=== PATIENT | female | born 1960 | race Caucasian/White ===

== ENCOUNTER 2017-07-24 18:30 | Outpatient (RCR) | payer MEDICAID, SELFPAY ==
--- NOTE | 2017-05-22 12:30 | HP.PTEVAL_ITS ---
Patient's Visit Information PRABHU OMER is a 56 year old F referred to Physical Therapy by Socorro Morales with a diagnosis of BACK AND NECK PAIN. Date of Evaluation: 05/22/17 Physical Therapist: Charlie Mittal, PT, - Visit Plan Frequency: 2x /Week Duration: 4 Weeks Plan: Aquatic PT for lumbar ROM ,DLS,POSTURE, ,FLEXABLITY,CERVICAL ROM,UE/LE STRENGTHENING - Subjective Subjective: This 56 y/o female presents to physical therapy with neck and back pain. Patient has spine for about 9 years. Patient has been seen pain managent [address] Morales. Patient has had personal issues has influenced back pain.Pain symmtrical cervical and thoracic pain,and lumbar.C/O parathesia fingers.Patient has had x-rays. Symptoms worse with walking,stress,standing, steps,lifting,cold,bending. Patient pain affects sleeping. Bowel/bladder -. Coughing/seezing -. Denies tinnitus/nausea/. Patien gas BELL. Pain affects quality of life and housework tasks. SOCAIL: single. VOCATION: unemployed - Pain Bilateral Back Pain Intensity (Out of 10): 3 Pain Intensity Range: 10 Bilateral Neck Pain Intensity (Out of 10): 3 Pain Intensity Range: 10 - Objective POSTURE: mild foward ,reduce lordosis. PALAPATION: render UT/[id number] -,erctor spinals. NEURO: c/o parathesia fingers,reflexes C5-6-7 2/3,L3-4,L4-5, L5-S1 1/3. SYMMTRIES: align. GAIT: normal kylah reciprocal pattern. AROM: BUE WFL,. CERVICAL:flexion min,lateral flexion ,rotation mod ,extension mod loss pain. LUMBAR ROM: flexion min ,side glides mod ,extension mod/severe loss. FLEXABLITY: hams mod tight. DIMINISHED HEEL/TOE WALKING - Special Tests C/S Radiculapathy - Left Upper limb tension test: Negative C/S Radiculapathy - Right Upper limb tension test: Negative C/S Radiculapathy - Left Spurlings: Positive C/S Radiculapathy - Right Spurlings: Positive C/S Radiculapathy - Left Cervical distraction: Negative C/S Radiculapathy - Right Cervical distraction: Negative Vertebral Artery Test: Negative Cervical Sitting: Protrusion - Mechanical Response: No effect Cervical Sitting: Protrusion - Symptoms During Testing: Increases Cervical Sitting: Protrusion - Symptoms After Testing: Worse Cervical Sitting: Retraction - Mechanical Response: No effect Cervical Sitting: Retraction - Symptoms During Testing: Increases L/S Slump test left side: Positive L/S Slump test right side: Positive L/S Left Straight Leg Raise: Positive L/S Right Straight Leg Raise: Positive Lumbar Standing: Flexion - Mechanical Response: No effect Lumbar Standing: Flexion - Symptoms During Testing: Increases Lumbar Standing: Flexion - Symptoms After Testing: Worse Lumbar Standing: Extension - Mechanical Response: No effect Lumbar Standing: Extension - Symptoms During Testing: Increases Lumbar Standing: Extension - Symptoms After Testing: Worse - Goals Goal 1:: Independant with Aquatic PT Goal Time Frame: 4-6 Weeks Goal 2:: Independant with posture/body mechanics Goal Time Frame: 4-6 Weeks Goal 3:: Decrease cervical and lumbar pain by 50% or greater to improve function with ADL'S Goal Time Frame: 4-6 Weeks Goal 4:: Patient increase cervical and lumbar ROM min loss for function of recovery Goal Time Frame: 4-6 Weeks Goal 5:: Patient be able to perform ADl's with standing and walking with min/ mod limitations Goal Time Frame: 4-6 Weeks - Rehabilitation Potential Physical Therapy Diagnosis: This patient has multiple comorbities along with cervical and lumbar pain with ROM ,pain ,strength impairments thus causes deficits with walking,standing ,housework chores Rehabilitation Potential: Fair - Anticipated Interventions Patient/Client Instruction: Educate patient on: Condition, Plan of Care For the Purpose of:: To decrease pain, To increase ROM, To improve muscle performance and motor function, To improve ability to perform ADL's, To increase tolerance to activity/condition/position, To improve performance and independence with ADL's, To improve ability of physical actions for home/ community/work/leisure, To improve health of tissue, To decrease soft tissue restriction, To increase flexibility/ROM, To improve endurance, To prevent re- injury, To improve ability to perform tasks related to life management Therapeutic Exercise to Include: Strength training, Body mechanics, Postural training, Flexibilty training, In an aquatic setting, Dynamic Lumbar Stabilization Comment: LUMBAR/CERVICAL/UE/LE For the Purpose of:: To decrease pain, To increase ROM, To improve muscle performance and motor function, To improve ability to perform ADL's, To increase tolerance to activity/condition/position, To improve performance and independence with ADL's, To improve ability of physical actions for home/ community/work/leisure, To improve health of tissue, To decrease soft tissue restriction, To increase flexibility/ROM, To improve ability to perform tasks related to life management Thank you for the opportunity to evaluate your patient. For Medicare and Medicare HMO plans, please review the plan of care and approve it. It will need to be FAXED BACK to us at [phone] for Medicare purposes. Please let me know if there are questions or concerns regarding this plan of care. Physician Signature: Date:
--- NOTE | 2017-08-03 16:02 | HP.PTDCSUM_ITS ---
HP - PT D/C Summary It has been my pleasure to treat PRABHU OMER under orders from Socorro Morales, for the diagnosis of BACK AND NECK PAIN for a total of 14 visit(s). Discharge Date: Please see the following information for a summary of their discharge status. - Subjective Subjective: Doing better overall less pain .Sleeping better. Walking better with stairs,. stamina improved - Pain Bilateral Back Pain Intensity (Out of 10): 3 Bilateral Neck Pain Intensity (Out of 10): 0 LBP Pain Intensity (Out of 10): 3 - Overall Improvement % Improvement: 80 - Objective Objective/Function: POSTURE: WFL. GAIT: reciprocal pattern ,mild foward posture. NEURO: c/o parathesia buring back,refexes C5-6-7 1/2,L3-4,L4-5,L5-S1. CERVICAL ROM: flexion min loss,lateral /flexion mod loss,extension mod loss. MMT: BUE 4/5 ,shoulder 4-/5,quads/hams 4/5,hip flxion 4-/5. LUMBAR ROM: flexion mod loss,extension mod /severe - Goals Goal 1:: Independant with Aquatic PT Goal Progress: Progressing Goal 2:: Independant with posture/body mechanics Goal Progress: Progressing Goal 3:: Decrease cervical and lumbar pain by 50% or greater to improve function with ADL'S Goal Progress: Progressing Goal 4:: Patient increase cervical and lumbar ROM min loss for function of recovery Goal Progress: Progressing Goal 5:: Patient be able to perform ADl's with standing and walking with min/ mod limitations Goal Progress: Progressing - Plan Plan: cont aquatics 1xweek for 4weeks - D/C Information If there are questions or concerns regarding this patient's physical therapy, please feel free to call me at [phone]. Thank you for the referral of this patient. Sincerely, Charlie Mittal, PT,
== END 2017-07-24 19:00 | disposition home or self-care (01) ==
LOC: PT 18:30
PROVIDERS: Family Provider Family Medicine; PCP Family Medicine; Visit Provider Anesthesiology Pain Medicine
DX: M54.2 Cervicalgia (principal); M54.9 Dorsalgia, unspecified
CPT/HCPCS: 97113; 97162; 97530

== ENCOUNTER 2022-03-29 11:30 | Outpatient (RCR) | payer MEDICAID, SELFPAY ==
--- NOTE | 2022-02-23 12:11 | HP.PTEVAL_ITS ---
Patient's Visit Information PRABHU MEANS is a 61 year old F referred to Physical Therapy by Dr. Dc العراقي MD with a diagnosis of thoracic pain and neck strain. Date of Evaluation: 02/23/22 Physical Therapist: JUAN R David - Visit Plan Frequency: 2x /Week Duration: 2 Months Plan: 2X/ week for 8 weeks for AT for core stability, UE and LE strength, postural exercises, stretching of thoracic and c-spine with HEP. PREFER No modalities due to recent cancer... cleared of CA for now. - Subjective Pt reports that she has a lot of arthritis in her spine and FM. She recently got an apartment and had some help but moved a lot on her own. She got to the point with the pain that her whole back burned and arms and legs were weak, not sleeping cause can not get comfortable. She has an air mattress. She gets sharp stabbing pains. She moved in October. She has been trying to rest. She has tied heat and that helps a little bit. She has tried her usual Tylenol and Osteobioflex. She got Flereril for bed time and Meloxicam. She does not tolerate meds like that really well and watching her BP. She tells me that her pain is at the middle of her neck and runs down to her tailbone. She has no leg or arm pain currently. She loves pool therapy. She feels that she needs core strengthening as well. Pt goes up and down the steps recip for about 5 steps and hold the railing. Pt has had an increase in BELL to 3X/ week. - Pain neck pain Pain Intensity (Out of 10): 4 Thoracic pain Pain Intensity (Out of 10): 5 Lumbar spine pain Pain Intensity (Out of 10): 4 - Objective Gait: Walks with slow kylah and smaller step length. Posture: sits with good upright posture. UE MMT: R shoulder flex 9.1# and L shoulder flex 9.5#. R shoulder ABD 7.6# and L 6.3#. R shoulder ER 11.3# and L 11.9#. bicep reflex B 2+/3. Palpation: tender along B paraspinals along T8-L1 (hypersenitive). C- spine AROM: Rot B 75% (slow movement to get there), flexion 75%, Ext 50% (increase dizzines with looking up too far), 50% B rotation. - Balance/Special Test Scores Oswestry Low Back Score: 26 - Goals Goal 1:: I HEP Goal Time Frame: 6-8 Weeks Goal 2:: Be able to turn over in bed without stabbing pain Goal Time Frame: 6-8 Weeks Goal 3:: Increase UE strength (at time of the eval: UE MMT: R shoulder flex 9.1# and L shoulder flex 9.5#. R shoulder ABD 7.6# and L 6.3#. R shoulder ER 11.3# and L 11.9#) Goal Time Frame: 6-8 Weeks Goal 4:: Abolish freq of BELL to 1X/ week or less Goal Time Frame: 6-8 Weeks - Rehabilitation Potential Rehabilitation Potential: Good - Anticipated Interventions Patient/Client Instruction: Educate patient on: Condition, Plan of Care For the Purpose of:: To decrease pain, To increase ROM, To improve nutrient delivery to tissue, To improve muscle performance and motor function, To improve ability to perform ADL's, To increase tolerance to activity/condition/position, To improve performance and independence with ADL's, To improve ability of physical actions for home/community/work/leisure, To improve health of tissue, To decrease soft tissue restriction, To increase flexibility/ROM Therapeutic Exercise to Include: Strength training, Endurance training, Postural training, Flexibilty training, Neuromotor development, In an aquatic setting, Passive ROM, Active ROM, Scapular Strength/Stabilization For the Purpose of:: To decrease pain, To increase ROM, To increase oxygenation perfusion, To improve muscle performance and motor function, To improve ability to perform ADL's, To increase tolerance to activity/condition/position, To improve performance and independence with ADL's, To improve ability of physical actions for home/community/work/leisure, To improve health of tissue, To decrease soft tissue restriction, To increase flexibility/ROM, To improve balance Thank you for the opportunity to evaluate your patient. For Medicare and Medicare HMO plans, please review the plan of care and approve it. It will need to be FAXED BACK to us at [phone] for Medicare purposes. For Medicare only, by signing this I certify the plan of care. Please let me know if there are questions or concerns regarding this plan of care. Physician Signature: Date:
--- NOTE | 2022-03-29 11:56 | HP.PTDCSUM ---
It has been my pleasure to treat PRABHU MEANS referred by Dr. Dc العراقي MD, with the diagnosis of thoracic pain and neck strain for a total of 8 visit(s). Discharge Date: 03/29/22 Please see the following information for a summary of their discharge status. Subjective: Pt. reports overall doing well. I am back to here I am prior to the flare up. neck pain Pain Intensity (Out of 10): 2 Thoracic pain Pain Intensity (Out of 10): 2 Lumbar spine pain Pain Intensity (Out of 10): 2 Objective/Function: Pt. is overall doing well. Pt. reports no more BELL, she is able to move in bed without issues. She reports overall being pleased. MMT: R shoulder: flexion: 12.9#, abd: 19.6#, 18.2#;L flexion; 17.7#, 21.2 abd, 16.3# ER. ROM: cervical spine: full motion, mild increase in symptoms with end range extension. No BELL. Pt. is to continue with exercises in aquatic setting. She has access to pool and plans on continuing her HEP there. Goal 1:: I HEP Goal Progress: Goal Met Goal 2:: Be able to turn over in bed without stabbing pain Goal Progress: Goal Met Goal 3:: Increase UE strength (at time of the eval: UE MMT: R shoulder flex 9.1# and L shoulder flex 9.5#. R shoulder ABD 7.6# and L 6.3#. R shoulder ER 11.3# and L 11.9#). (NOW: R shoulder: flexion: 12.9#, abd: 19.6#, 18.2#;L flexion; 17.7#, 21.2 abd, 16.3# ER) Goal Progress: Goal Met Goal 4:: Abolish freq of BELL to 1X/ week or less Goal Progress: Goal Met Plan: Dc to HEP. Pt. has acess to pool and plans on using this pool to maintain her current levels of symptoms. Discharge Comments: Pt. was treated in aquatic setting for all of her Thoracic and cervical spine pain. She did very well. She is no longer having HAs and is back to most activities prior to this injury. She has met all goals with PT. She plans to continue with her HEP at local pool. Pt. has no questions or concerns and will be DC from PT at this point in time. If there are questions or concerns regarding this patient's physical therapy, please feel free to call me at [phone]. Thank you for the referral of this patient. Sincerely, Justyn Donaldson, DPT Balance/Gait/Functional tests - Balance/Special Test Scores Oswestry Low Back Score: 14
== END 2022-03-29 12:52 | disposition home or self-care (01) ==
LOC: PT 11:30
PROVIDERS: PCP Family Medicine; Referring Provider Family Medicine; Visit Provider Family Medicine
DX: S16.1XXD Strain of muscle, fascia and tendon at neck level, subsequent encounter (principal); X58.XXXD Exposure to other specified factors, subsequent encounter
CPT/HCPCS: 97113; 97162; 97164

== ENCOUNTER 2024-06-15 23:44 | Emergency (ER) | payer MEDICAID, SELFPAY ==
[2024-06-15 23:44] VITALS: BP 131/79; PULSE 83; RESP 18; TEMP 36.4; O2SAT 99; BMI 30.4
--- NOTE | 2024-06-15 23:58 | RAD_ITS ---
INDICATION: injury EXAMINATION/TECHNIQUE: X-RAY - LEFT XR Humerus Min 2 Views 3 images COMPARISON: No relevant prior comparison study available FINDINGS: SOFT TISSUES: No soft tissue swelling or gas. No radiopaque foreign body. The visualized lung is clear. BONES/JOINTS: No acute fracture or subluxation.. Normal alignment. Preservation of the joint space.. No sclerotic or destructive changes observed. The visualized ribs are intact. RAD/Humerus min 2 Views IMPRESSION: No fracture or malalignment. Electronically Signed: Dejon Ramírez MD at 0:10 EST ,
[2024-06-16] MEDS: oxyCODONE 5 MG Tablet PO (00:19)
--- NOTE | 2024-06-16 00:40 | EDS_ITS ---
HPI History of Present Illness Chief Complaint: Upper Extremity Injury Informant: patient and friend Narrative Narrative: Patient is a 63-year-old female with past medical history of hypertension hypothyroidism and fibromyalgia. She states an hour or so prior to arrival she fell out of bed landing on her left arm. She denies striking her head any loss of consciousness history of bleeding disorder or blood thinner use. She states she sustained bruising and swelling to the left arm which is very painful to touch and motion and has concern for fracture and therefore comes in for evaluation. [facility] Medical History (Updated 06/16/24 @ 01:[address] Zoltan Dowell, DO) Osteoarthritis Fibromyalgia Atrial fibrillation Intestinal cancer Asthma Depression Anxiety PTSD (post-traumatic stress disorder) Hypothyroid HTN (hypertension) Home Medications ?Medication ?Instructions ?Recorded ?Last Taken ?Type acetaminophen 500 mg capsule 500 mg PO Q8H PRN PRN fever or pain 06/15/24 Unknown History albuterol sulfate 90 mcg/actuation 2 puff inhalation Q4H PRN 06/15/24 Unknown History aerosol inhaler (Ventolin HFA) shortness of breath or wheezing fluticasone 250 mcg-salmeterol 50 1 inh inhalation Q12H 06/15/24 Unknown History mcg/dose blistr powdr for inhalation (Advair Diskus) hydrochlorothiazide 12.5 mg capsule 12.5 mg PO DAILY 06/15/24 Unknown History levothyroxine 100 mcg tablet 100 mcg PO DAILY 06/15/24 Unknown History meloxicam 7.5 mg tablet 7.5 mg PO DAILY 06/15/24 Unknown History verapamil 240 mg 24 hr 240 mg PO DAILY 06/15/24 Unknown History capsule,extended release glucosamine-chondroitin 250 mg-200 1 tab PO BID 06/16/24 Unknown History mg tablet (Osteo Bi-Flex) loratadine 10 mg tablet (Allergy 10 mg PO DAILY 06/16/24 Unknown History Relief (loratadine)) multivitamin (Daily Multi-Vitamin 1 tab PO DAILY 06/16/24 Unknown History tablet) Allergy/AdvReac Type Severity Reaction Status Date / Time amoxicillin Allergy Rash Verified 06/16/24 00:05 diltiazem Allergy PT UNABLE Verified 06/16/24 00:05 TO RESPOND-NEEDS F/U phenytoin Allergy Rash Verified 06/16/24 00:05 prednisone Allergy PT UNABLE Verified 06/16/24 00:05 TO RESPOND-NEEDS F/U codeine AdvReac Abd Verified 06/16/24 00:05 cramps/diarrhea duloxetine AdvReac PT UNABLE Verified 06/16/24 00:05 TO RESPOND-NEEDS F/U fentanyl AdvReac Abd Verified 06/16/24 00:05 cramps/diarrhea furosemide AdvReac Abd Verified 06/16/24 00:05 cramps/diarrhea ibuprofen AdvReac Abd Verified 06/16/24 00:05 cramps/diarrhea naproxen AdvReac PT UNABLE Verified 06/16/24 00:05 TO RESPOND-NEEDS F/U Neuromuscular Blockers, AdvReac Other Verified 06/16/24 00:10 Benzylisoqu Neuromuscular Blockers, AdvReac Other Verified 06/16/24 00:10 Steroidal NSAIDS (Non-Steroidal AdvReac Bleeding Verified 06/16/24 00:10 Anti-Inflamma Opioids - Morphine Analogues AdvReac Other Verified 06/15/24 23:53 (narcotics) Surgical History (Updated 06/15/24 @ 23:56 by Latoya Yip) Hx of appendectomy History of hysterectomy History of intestinal surgery Social History (System 06/01/17 @ 12:55 by Yasmin Mendez) Smoking Status: Current every day smoker tobacco type: cigarettes ROS ROS ED Constitutional Constitutional ED: Denies chills or fever(s) Eyes Eyes: Denies blurry vision or change in vision ENT ENT ED: Denies sore throat Cardiovascular Cardiovascular: Reports other Details: Negative syncope ; Denies chest pain Respiratory/Chest Respiratory/Chest: Denies cough or dyspnea Gastrointestinal Gastrointestinal: Denies abdominal pain, diarrhea, nausea or vomiting Genitourinary Genitourinary ED: Denies dysuria Musculoskeletal Musculoskeletal: Reports other Details: Positive left arm pain ; Denies back pain or neck pain Integumentary Reports Abrasions; Denies rash Neurologic Neurologic: Denies headache(s), paresthesias or weakness Hematologic/Lymphatic Hematologic/Lymphatic: Denies easy bleeding or easy bruising EXAM Physical Exam Const Vital Signs: 06/15/24 23:44 Temperature 97.6 F L Temperature Source Oral Pulse Rate 83 Respiratory Rate 18 Blood Pressure 131/79 H Blood Pressure Mean 96 Pulse Ox 99 Positive well nourished and well developed General Appearance ED: well developed HEENT HEENT Narrative: Normocephalic atraumatic Eyes PERRL and EOMs intact bilaterally Neck full ROM and supple Neck Narrative: No bony deformity or step-off of the cervical spine no midline tenderness to palpation Resp normal respiratory effort and clear to auscultation bilaterally Cardio regular rate and regular rhythm Back/Spine Back/Spine Narrative: No bony deformity or step-off of the thoracic or lumbar spine no midline tenderness to palpation Extremity Extremity Narrative: Pelvis is stable there is no shortening or external rotation of either lower extremity Left upper extremity is neurovascularly intact; AIN/PIN are intact and normal. Patient has a superficial abrasion with soft tissue swelling ecchymosis along the lateral aspect of the middle third portion of the humerus consistent with injury. Compartments are soft and compressible going against compartment syndrome. No obvious bony deformity or joint effusion. Negative sulcus sign. Patient still has full active range of motion at the elbow and shoulder. Neuro oriented x3 and CN's II-XII intact bilaterally Sensorium / Orientation: alert Psych mental status grossly normal Skin no rashes or lesions noted Skin Narrative: Soft tissue changes to the left arm as documented above MDM MDM MDM Narrative Medical decision making narrative: Patient reported mechanical fall and therefore I felt no need for cardiac or syncope workup. She did not strike her head or have loss of consciousness nor does she take blood thinners and therefore I have low concern for traumatic subarachnoid or subdural hemorrhage and do not feel the need to order a CT scan. With pain and swelling along the midportion of the humerus there is concern for a fracture versus contusion. Therefore an x-ray was obtained. X-ray revealed no signs of bony trauma indicating patient has a humeral contusion. At this time she is neurovascularly intact she does not have compartment syndrome there are no secondary findings of infection and therefore she safe for discharge with symptomatic care. History & Record Review Discussion w/independent historian: Patient and Friend Radiography Diagnostic Testing: Clinical Impression(s) from Imaging Studies Humerus X-Ray 06/15/24 23:58 IMPRESSION: No fracture or malalignment. Electronically Signed: Dejon Ramírez MD at 0:10 EST , X-ray of the left humerus as interpreted by the emergency medicine physician reveals no acute fracture dislocation or joint effusion Discharge Plan Triage Chief Complaint: Upper Extremity Injury ED Provider: Zoltan Dowell Dx/Rx/DC Orders Clinical Impression: Contusion of left upper arm, initial encounter, Fibromyalgia, Hypothyroidism, Hypertension Instructions: Bone Contusion Prescriptions: No Action levothyroxine 100 mcg tablet 100 mcg PO DAILY fluticasone propion-salmeterol [Advair Diskus] 250-50 mcg/dose blister with device 1 inh INHALATION Q12H albuterol sulfate [Ventolin HFA] 90 mcg/actuation HFA aerosol inhaler 2 puff INHALATION Q4H PRN (Reason: shortness of breath or wheezing) hydrochlorothiazide 12.5 mg capsule 12.5 mg PO DAILY verapamil 240 mg capsule,ext rel. pellets 24 hr 240 mg PO DAILY meloxicam 7.5 mg tablet 7.5 mg PO DAILY acetaminophen 500 mg capsule 500 mg PO Q8H PRN PRN (Reason: fever or pain) loratadine [Allergy Relief (loratadine)] 10 mg tablet 10 mg PO DAILY glucosamine-chondroitin [Osteo Bi-Flex] 250-200 mg tablet 1 tab PO BID Rx Instructions: give after food/meal multivitamin [Daily Multi-Vitamin] Tablet 1 tab PO DAILY Primary Care Provider: Dc العراقي Referrals: Dc العراقي MD [Primary Care Provider] - Activity Restrictions/Additional Instructions: Your x-ray did not show any signs of fracture or dislocation. This indicates your pain and swelling is secondary to a deep bone bruise. Ice the area to reduce pain and speed healing and return to the ER should you have any further concern. Print Language: Dominican Disposition Disposition: Home, Self Care Discharge Date/Time: 06/16/24 00:44
== END 2024-06-16 00:44 | disposition home or self-care (01) ==
PROVIDERS: Emergency Provider Emergency Medicine; PCP Family Medicine; Visit Provider Emergency Medicine
DX: S40.022A Contusion of left upper arm, initial encounter (principal); I48.91 Unspecified atrial fibrillation; I10 Essential (primary) hypertension; M79.7 Fibromyalgia; F17.210 Nicotine dependence, cigarettes, uncomplicated; E03.9 Hypothyroidism, unspecified; Z90.710 Acquired absence of both cervix and uterus; W06.XXXA Fall from bed, initial encounter; J45.909 Unspecified asthma, uncomplicated; Z79.51 Long term (current) use of inhaled steroids; Z79.890 Hormone replacement therapy; Z79.899 Other long term (current) drug therapy; M19.90 Unspecified osteoarthritis, unspecified site; Z90.49 Acquired absence of other specified parts of digestive tract
CPT/HCPCS: 73060; 99282